=== PATIENT | female | born 2000 | race African-American/Black ===

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

== ENCOUNTER 2022-12-05 09:45 | Emergency (ER) | payer OTHER, SELFPAY ==
[2022-12-05 09:47] VITALS: BP 140/90; PULSE 100; RESP 16; TEMP 37.1; O2SAT 98; BMI 38.4
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
[2022-12-05 11:52] VITALS: BP 124/76; PULSE 64; RESP 14; TEMP 36.4; O2SAT 99
== END 2022-12-05 12:02 | disposition home or self-care (01) ==
PROVIDERS: Emergency Provider Emergency Medicine; Visit Provider Emergency Medicine
DX: S80.01XA Contusion of right knee, initial encounter (principal); S46.912A Strain of unspecified muscle, fascia and tendon at shoulder and upper arm level, left arm, initial encounter; S60.222A Contusion of left hand, initial encounter; V43.52XA Car driver injured in collision with other type car in traffic accident, initial encounter; W22.11XA Striking against or struck by driver side automobile airbag, initial encounter; Y92.410 Unspecified street and highway as the place of occurrence of the external cause
CPT/HCPCS: 73010; 73030; 73130; 73564; 99282